=== PATIENT | female | born 1970 | race Caucasian/White ===

== ENCOUNTER 2017-06-02 08:28 | Emergency (ER) | payer BC ==
[~2017-06-02] VITALS: Ht 160 cm; Wt 61.2 kg
[~2017-06-02 08:28] MED LIST: AUGMENTIN875 MG PO; NASONEX17 GM BOTH NARES
[2017-06-02 09:53] LABS: HEMOGLOBIN 13.7 G/DL (11.9-15.5); MCH 28.8 PG (29.0-34.0); MCHC 33.4 G/DL (30.0-36.0); MCV 86.1 FL (83-99); PLATELET COUNT 304 K/uL (156-360); RBC DIS.WIDTH-CV 12.6 % (11.8-14.6); RBC DIS.WIDTH-SD 39.8 % (39-53); RED BLOOD COUNT 4.76 M/uL (3.80-5.20); WHITE BLOOD COUNT 14.6 K/uL (4.1-10.2)
[2017-06-02 10:06] LABS: CHLORIDE 106 mEq/L (99-109); POTASSIUM 3.8 mEq/L (3.7-5.4); SODIUM 141 mEq/L (136-147)
[2017-06-02 10:07] LABS: GLUCOSE 96 mg/dL (70-99)
[2017-06-02 10:11] LABS: CREATININE 0.8 mg/dL (0.6-1.3); GFR ESTIMATE (CALCULATED) > 59 mL/min/
[2017-06-02 10:12] LABS: UREA NITROGEN (BUN) 10 mg/dL (9-23)
[2017-06-02 11:46] LABS: TROP-I INTERPRETATION NEGATIVE; TROPONIN-I 0.02 ng/mL (0.0-0.30)
[2017-06-02 13:04] LABS: TROP-I INTERPRETATION NEGATIVE; TROPONIN-I < 0.01 ng/mL (0.0-0.30)
[2017-06-02 14:28] VITALS: BP 108/76
== END 2017-06-02 14:29 | disposition home or self-care (01) ==
LOC: EME 08:28
PROVIDERS: Emergency Medicine
DX: R07.89 Other chest pain (principal); I71.2 Thoracic aortic aneurysm, without rupture; J45.909 Unspecified asthma, uncomplicated; Z88.0 Allergy status to penicillin
CPT/HCPCS: 71275; 80048; 84484; 84702; 85027; 85610; 85730; 93005; 99281; 99285; J1885; J7030

== ENCOUNTER → 2017-06-18 | Outpatient (CLI) | payer BC | END | disposition home or self-care (01) | LOC: NUC 06:30 | DX: R07.9 Chest pain, unspecified (principal) | CPT/HCPCS: 78452; 93017; A9500 ==